=== PATIENT | male | born 1985 | race Asian ===

== ENCOUNTER 2018-05-04 19:57 | Emergency (ER) | payer SELFPAY ==
[~2018-05-04] VITALS: Ht 167.6 cm; Wt 63.6 kg
[2018-05-04] MEDS ORDERED: PROPARACAINE/FLUORESCEIN SOD 0.5-0.25% 0.5 ML OPHTHALMIC SOLUTION OD ONE ×2 (21:15→21:30)
[2018-05-04] MEDS ORDERED: ERYTHROMYCIN 0.5% 3.5 GM TUBE OPHTHALMIC OINTMENT OD ONE (21:30)
[2018-05-04] MEDS ORDERED: PROPARACAINE HCL 0.5% 15 ML OPHTHALMIC SOLUTION OD ONE (21:30)
[2018-05-04] MEDS ORDERED: CIPROFLOXACIN HCL 0.3% 2.5 ML OPHTHALMIC SOLUTION OD ONE (21:30)
[2018-05-04 22:16] VITALS: BP 126/85
== END 2018-05-04 22:17 | disposition home or self-care (01) ==
LOC: EMS 19:58
DX: S05.8X1A Other injuries of right eye and orbit, initial encounter (principal); F17.210 Nicotine dependence, cigarettes, uncomplicated; X58.XXXA Exposure to other specified factors, initial encounter; Y93.89 Activity, other specified; Y92.89 Other specified places as the place of occurrence of the external cause; Y99.8 Other external cause status
CPT/HCPCS: 99284; Z7610